=== PATIENT | female | born 1970 | race Two or more races ===

== ENCOUNTER 2023-10-07 14:30 | Emergency (ER) | payer OTHER ==
[~2023-10-07] VITALS: Ht 154.9 cm; Wt 52.2 kg
[2023-10-07] MEDS ORDERED: SINGULAIR10 MG PO (15:04)
[2023-10-07] MEDS ORDERED: NEURONTIN300 MG PO (15:04)
[2023-10-07] MEDS ORDERED: CLONAZEPAM0.5 M1 PO (15:04)
[2023-10-07] MEDS ORDERED: LAMICTAL200 MG PO (15:04)
[2023-10-07] MEDS ORDERED: FAMOTIDINE/PF 20 MG/2 ML VIAL IV ONE (16:15)
[2023-10-07] MEDS ORDERED: ONDANSETRON HCL 2 MG/ML VIAL IV ONE (16:15)
[2023-10-07] MEDS ORDERED: KETOROLAC TROMETHAMINE 30 MG VIAL IV ONE (16:15)
[2023-10-07] MEDS ORDERED: 0.9 % SODIUM CHLORIDE 500 ML IV ONE (16:15)
[2023-10-07 17:00] LABS: URINE APPEARANCE Clear; URINE BILIRRUBIN Negative (NEGATIVE); URINE BLOOD Negative; URINE COLOR Yellow; URINE GLUCOSE Negative (NEGATIVE); URINE LEUKOCYTE Negative; URINE NITRATE Negative; URINE PROTEIN Negative (NEGATIVE); URINE UROBILINOGEN 0.2 E.U./dl
[2023-10-07 17:03] LABS: HEMATOCRIT 39.4 % (36.0-45.00); MEAN CELL VOLUME 82.8 fL (80.00-100.00); MEAN CORPUSCULAR HEMOGLOBIN 27.4 pg (27.00-32.0); MEAN CORPUSCULAR HGB CONC 33.1 g/dl (32.0-36.0); PLATELET COUNT 282 K/uL (150-450); RED BLOOD COUNT 4.76 M/uL (4.00-6.00); RED CELL DISTRIBUTION WIDTH 13.1 % (11.5-14.5)
[2023-10-07 17:04] LABS: URINE EPITHELIAL CELLS 2.3 uL (0.0-38.8); URINE RBC 15.2 uL (0.0-20.8); URINE WBC 3.8 uL (0.0-23.2)
[2023-10-07 17:48] LABS: ALBUMIN 3.9 gm/dL (3.4-5.0); BILIRUBIN TOTAL 0.29 mg/dL (0.3-1.2); CREATININE SERUM 0.83 mg/dL (0.55-1.02); GFR 72.47; GLOBULINA 3.7 G/DL (2.4-3.5); POTASSIUM 3.96 mEq/L (3.5-5.1); TOTAL PROTEIN 7.6 gm/dL (6.4-8.2)
[2023-10-07] MEDS ORDERED: MIRALAX510 GM PO (19:20)
[2023-10-07] MEDS ORDERED: DICLOFENAC SODI50 MG PO (19:21)
== END 2023-10-07 19:34 ==
LOC: ER 14:31
PROVIDERS: Nurse Practitioner Family
DX: K59.00 Constipation, unspecified (principal); K57.30 Diverticulosis of large intestine without perforation or abscess without bleeding; E03.9 Hypothyroidism, unspecified; Z87.09 Personal history of other diseases of the respiratory system; Z91.013 Allergy to seafood; Z88.8 Allergy status to other drugs, medicaments and biological substances; Z91.018 Allergy to other foods; Z20.822 Contact with and (suspected) exposure to COVID-19

== ENCOUNTER 2024-04-27 10:45 | Inpatient (IN) | payer OTHER ==
[~2024-04-27] VITALS: Ht 154.9 cm; Wt 53.5 kg
[~2024-04-27 10:45] MED LIST: CLONAZEPAM0.5 M1 PO; DICLOFENAC SODI50 MG PO; LAMICTAL200 MG PO; MIRALAX510 GM PO; NEURONTIN300 MG PO; SINGULAIR10 MG PO
[2024-04-27] MEDS ORDERED: SYMBICORT 16010.2 GM IH (13:06)
[2024-04-27] MEDS ORDERED: ATROVENT HFA12.9 GM IH (13:06)
[2024-04-27 13:07] VITALS: BP 119/77
[2024-04-27] MEDS ORDERED: GABAPENTIN100 M2 PO (13:07)
[2024-04-27] MEDS ORDERED: PEPCID AC20 MG PO (13:07)
[2024-05-08] MEDS ORDERED: LIDOCAINE HCL 1%/EPINEPHRINE 20ML VIAL IJ ONE (14:57)
[2024-05-08] MEDS ORDERED: METRONIDAZOLE/SODIUM CHLORIDE 500 MG/100 ML PIGGYBACK IV ONE (14:57)
[2024-05-08] MEDS ORDERED: CEFTRIAXONE SODIUM 2,000 MG VIAL ONE (14:57)
[2024-05-08] MEDS ORDERED: BUPIVACAINE HCL/Mpf 0.5% 10ML VIAL ONE (14:57)
[2024-05-08] MEDS ORDERED: LACTOBACILLUS ACIDOPHILUS 1 CAP CAP PO SCH (17:04)
[2024-05-08] MEDS ORDERED: TAMSULOSIN HCL 0.4 MG CAP PO SCH (17:04)
[2024-05-08] MEDS ORDERED: RINGERS SOLUTION,LACTATED 1,000 ML IV SCH (17:15)
[2024-05-08] MEDS ORDERED: MORPHINE SULFATE 4 MG/ML CARTRIDGE IV PRN (17:15)
[2024-05-08] MEDS ORDERED: OxyCODONE HCL 5 MG TABLET (ROXICODONE) PO PRN (17:15)
[2024-05-08] MEDS ORDERED: ONDANSETRON HCL 2 MG/ML VIAL IV PRN (17:15)
[2024-05-08] MEDS ORDERED: MORPHINE SULFATE 4 MG/ML VIAL IV ONE ×3 (17:55→18:55)
[2024-05-08] MEDS ORDERED: ACETAMINOPHEN 500 MG GEL..CAP PO SCH (18:00)
[2024-05-08] MEDS ORDERED: ONDANSETRON HCL 2 MG/ML VIAL ONE (18:14)
[2024-05-08] MEDS ORDERED: ONDANSETRON HCL 2 MG/ML VIAL IV ONE (18:25)
[2024-05-08] MEDS ORDERED: FAMOTIDINE/PF 20 MG/2 ML VIAL ONE (19:08)
[2024-05-08] MEDS ORDERED: CEFAZOLIN SODIUM 1,000 MG VIAL ONE (19:08)
[2024-05-08] MEDS ORDERED: DEXAMETHASONE SODIUM PHOSP/PF 10 MG/ML VIAL ONE (19:47)
[2024-05-08] MEDS ORDERED: PROMETHAZINE HCL 50 MG/ML AMPUL IM ONE (19:48)
[2024-05-08] MEDS ORDERED: METOCLOPRAMIDE HCL 5 MG/ML VIAL ONE (19:48)
[2024-05-08 20:50] VITALS: BP 112/75; O2SAT 96
[2024-05-08] MEDS ORDERED: FAMOTIDINE/PF 20 MG/2 ML VIAL IV PUSH SCH (21:00)
[2024-05-08] MEDS ORDERED: CEFAZOLIN SODIUM 1,000 MG VIAL IV SCH (21:00)
[2024-05-09] MEDS ORDERED: GABAPENTIN 300 MG CAPSULE PO SCH (01:00)
[2024-05-09 01:11] VITALS: BP 131/79; O2SAT 99
[2024-05-09 07:34] LABS: HEMATOCRIT 36.5 % (36.0-45.00); HEMOGLOBIN 12.4 g/dL (12.0-15.00); MEAN CELL VOLUME 82.7 fL (80.00-100.00); MEAN CORPUSCULAR HGB CONC 33.9 g/dl (32.0-36.0); PLATELET COUNT 275 K/uL (150-450); RED BLOOD COUNT 4.41 M/uL (4.00-6.00); RED CELL DISTRIBUTION WIDTH 12.5 % (11.5-14.5)
[2024-05-09 08:00] VITALS: BP 109/69; O2SAT 98
[2024-05-09 08:06] LABS: ALBUMIN 3.4 gm/dL (3.4-5.0); CALCIUM 8.4 mg/dL (8.5-10.1); CREATININE SERUM 0.58 mg/dL (0.55-1.02); GFR 109.6; MAGNESIUM 1.5 mg/dL (1.8-2.4); PHOSPHOROUS 3.6 mg/dL (2.5-4.9); POTASSIUM 3.58 mEq/L (3.5-5.1)
[2024-05-09] MEDS ORDERED: HYOSCYAMINE SULFATE 0.125 MG TAB.SUBL SL SCH (09:00)
[2024-05-09] MEDS ORDERED: MONTELUKAST SODIUM 10 MG TABLET PO SCH (09:00)
[2024-05-09] MEDS ORDERED: LEVALBUTEROL HCL 0.63 MG/3 ML SOLUTION IH SCH (09:00)
[2024-05-09] MEDS ORDERED: MAGNESIUM SULFATE IN WATER 4 GM/100 ML PIGGYBACK IV NR (09:15)
[2024-05-09 16:31] VITALS: BP 101/69; O2SAT 100
[2024-05-09] MEDS ORDERED: ENOXAPARIN SODIUM 40 MG/0.4 ML SYRINGE SUBCUTANEO SCH (17:00)
[2024-05-09] MEDS ORDERED: LAMICTAL 200 MG PO SCH (17:00)
[2024-05-09] MEDS ORDERED: CLONAZEPAM 0.5 MG TABLET PO SCH (21:00)
[2024-05-10 00:42] VITALS: BP 109/57; O2SAT 97
[2024-05-10 08:00] VITALS: BP 104/66; O2SAT 97
[2024-05-10] MEDS ORDERED: ENOXAPARIN SODIUM 40 MG/0.4 ML SYRINGE SUBCUTANEO SCH (09:00)
[2024-05-10] MEDS ORDERED: PANTOPRAZOLE SODIUM 40 MG/VIAL VIAL IV SCH (11:47)
[2024-05-10] MEDS ORDERED: SUCRALFATE 1 G TABLET PO SCH (13:00)
[2024-05-10 16:32] VITALS: BP 106/66; O2SAT 97
[2024-05-10] MEDS ORDERED: MEPERIDINE HCL/PF 25 MG/ML VIAL IV SCH (17:00)
[2024-05-11 00:45] VITALS: BP 124/60; O2SAT 97
[2024-05-11 06:27] LABS: HEMATOCRIT 34.6 % (36.0-45.00); HEMOGLOBIN 11.5 g/dL (12.0-15.00); MEAN CELL VOLUME 83.3 fL (80.00-100.00); MEAN CORPUSCULAR HEMOGLOBIN 27.7 pg (27.00-32.0); MEAN CORPUSCULAR HGB CONC 33.2 g/dl (32.0-36.0); PLATELET COUNT 241 K/uL (150-450); RED BLOOD COUNT 4.16 M/uL (4.00-6.00); RED CELL DISTRIBUTION WIDTH 12.7 % (11.5-14.5)
[2024-05-11 06:54] LABS: BILIRUBIN TOTAL 0.39 mg/dL (0.3-1.2); CALCIUM 8.4 mg/dL (8.5-10.1); CREATININE SERUM 0.6 mg/dL (0.55-1.02); GFR 105.39; GLOBULINA 2.6 G/DL (2.4-3.5); POTASSIUM 3.53 mEq/L (3.5-5.1); TOTAL PROTEIN 5.6 gm/dL (6.4-8.2)
[2024-05-11 08:00] VITALS: BP 101/60; O2SAT 98
[2024-05-11 16:00] VITALS: BP 100/68; BP 100/698; O2SAT 95
[2024-05-11] MEDS ORDERED: INTESTINEX680 M1 PO (17:37)
[2024-05-11] MEDS ORDERED: HYOSCYAMINE0.125 M1 SL (17:38)
[2024-05-11] MEDS ORDERED: TRAMADOL HCL50 MG PO (17:38)
== END 2024-05-12 08:39 | disposition home or self-care (01) | DRG 330 ==
LOC: SURH 05-08 06:30 → O/R 05-08 06:30 → SURH 05-08 10:45
PROVIDERS: Internal Medicine; ADMIT Surgery; ATTEND Surgery
PROC: 0DBP4ZZ Excision of Rectum, Percutaneous Endoscopic Approach (ICD-10-PCS; 2024-05-08)
PROC: 0DJD8ZZ Inspection of Lower Intestinal Tract, Via Natural or Artificial Opening Endoscopic (ICD-10-PCS; 2024-05-08)
PROC: 0DTN4ZZ Resection of Sigmoid Colon, Percutaneous Endoscopic Approach (ICD-10-PCS; principal; 2024-05-08 14:00)
DX: K57.32 Diverticulitis of large intestine without perforation or abscess without bleeding (principal); K56.690 Other partial intestinal obstruction; N73.6 Female pelvic peritoneal adhesions (postinfective); N99.4 Postprocedural pelvic peritoneal adhesions

== ENCOUNTER 2024-07-14 09:56 | Emergency (ER) | payer OTHER ==
[~2024-07-14] VITALS: Ht 154.9 cm; Wt 51.3 kg
[~2024-07-14 09:56] MED LIST changes: +ATROVENT HFA12.9 GM IH; +GABAPENTIN100 M2 PO; +HYOSCYAMINE0.125 M1 SL; +INTESTINEX680 M1 PO; +PEPCID AC20 MG PO; +SYMBICORT 16010.2 GM IH; +TRAMADOL HCL50 MG PO
[2024-07-14] MEDS ORDERED: SUCRALFATE1 GM PO (10:11)
[2024-07-14] MEDS ORDERED: ONDANSETRON HCL 2 MG/ML VIAL IV ONE (10:30)
[2024-07-14] MEDS ORDERED: PANTOPRAZOLE SODIUM 40 MG/VIAL VIAL IV ONE (10:30)
[2024-07-14] MEDS ORDERED: KETOROLAC TROMETHAMINE 30 MG VIAL IV ONE (10:30)
[2024-07-14] MEDS ORDERED: ONDANSETRON HCL 2 MG/ML VIAL ONE (10:33)
[2024-07-14] MEDS ORDERED: KETOROLAC TROMETHAMINE 30 MG VIAL ONE (10:33)
[2024-07-14] MEDS ORDERED: BARIUM SULFATE 450 ML ORAL.SUSP PO ONE (10:38)
[2024-07-14 10:52] LABS: HEMATOCRIT 40.3 % (36.0-45.00); HEMOGLOBIN 13.2 g/dL (12.0-15.00); MEAN CELL VOLUME 83.6 fL (80.00-100.00); MEAN CORPUSCULAR HEMOGLOBIN 27.5 pg (27.00-32.0); MEAN CORPUSCULAR HGB CONC 32.9 g/dl (32.0-36.0); PLATELET COUNT 299 K/uL (150-450); RED BLOOD COUNT 4.82 M/uL (4.00-6.00)
[2024-07-14 11:02] LABS: URINE APPEARANCE Clear; URINE BILIRRUBIN Negative (NEGATIVE); URINE BLOOD Negative; URINE COLOR Yellow; URINE GLUCOSE Negative (NEGATIVE); URINE KETONE Negative (NEGATIVE); URINE LEUKOCYTE Negative; URINE NITRATE Negative; URINE PROTEIN Negative (NEGATIVE); URINE UROBILINOGEN 0.2 E.U./dl
[2024-07-14 11:03] LABS: URINE BACTERIA 193.3 uL (0.0-1933); URINE EPITHELIAL CELLS 3.6 uL (0.0-38.8); URINE RBC 12.9 uL (0.0-20.8); URINE WBC 3.7 uL (0.0-23.2)
[2024-07-14 12:22] LABS: INR 0.97; PARTIAL THROMBOPLASTIN TIME 26.5 SECONDS (22.0-34.0); PROTHROMBIN TIME 10.6 SECONDS (9.0-11.5)
[2024-07-14 12:32] LABS: ALBUMIN 3.8 gm/dL (3.4-5.0); ALKALINE PHOSPHATASE 84 U/L (50-136); ALT/SGPT 27 U/L (12-78); AMYLASE 131 U/L (25-115); ANION GAP 6 (10.0-20.0); AST/SGOT 24 U/L (15-37); BILIRUBIN TOTAL 0.31 mg/dL (0.3-1.2); BILIRUBIN,CONJUGATED < 0.10 mg/dL (0.0-0.2); BILIRUBIN,UNCONJUGATED 0.21 mg/dL (0.0-0.6); BLOOD UREA NITROGEN 12 mg/dL (7-18); BUN CREA RATIO 16 (7.0-25.0); CALCIUM 9.7 mg/dL (8.5-10.1); CARBON DIOXIDE 33 mEq/L (21-32); CHLORIDE 109 mmol/L (98-107); CREATININE SERUM 0.73 mg/dL (0.55-1.02); GFR 83.72; GLOBULINA 3.7 G/DL (2.4-3.5); GLUCOSE FASTING 95 mg/dL (65-100); LIPASE 56 U/L (13-75); OSMOLALITY SERUM 286 MOSM/KG (275-295); SODIUM 144 mmol/L (136-145); TOTAL PROTEIN 7.5 gm/dL (6.4-8.2)
[2024-07-14] MEDS ORDERED: METRONIDAZOLE500 MG PO (14:59)
[2024-07-14] MEDS ORDERED: PROBIOTIC1 EAC2 PO (14:59)
[2024-07-14] MEDS ORDERED: PEPCID AC20 MG PO (14:59)
[2024-07-14] MEDS ORDERED: KETO10TA2 PO (14:59)
== END 2024-07-14 15:06 | disposition home or self-care (01) ==
LOC: ER 09:58
PROVIDERS: General Practice
DX: R11.0 Nausea (principal); R10.32 Left lower quadrant pain; K59.00 Constipation, unspecified; K57.90 Diverticulosis of intestine, part unspecified, without perforation or abscess without bleeding; R10.9 Unspecified abdominal pain; E03.8 Other specified hypothyroidism; Z88.1 Allergy status to other antibiotic agents; Z88.9 Allergy status to unspecified drugs, medicaments and biological substances; Z91.018 Allergy to other foods; Z91.040 Latex allergy status; Z91.041 Radiographic dye allergy status
CPT/HCPCS: 36415; 74177; Q9965

== ENCOUNTER 2024-07-16 10:32 | Inpatient (IN) | payer OTHER ==
[~2024-07-16] VITALS: Ht 154.9 cm; Wt 52.2 kg
[~2024-07-16 10:32] MED LIST changes: +KETO10TA2 PO; +METRONIDAZOLE500 MG PO; +PROBIOTIC1 EAC2 PO; +SUCRALFATE1 GM PO
--- NOTE | 2024-07-16 10:43 | NUR ---
PTE ALERTA Y ORIENTADA X3 LA MISMA VERBALIZA TENER DOLOR ABDOMINAL DESDE 07/16/24 CON VOMITOS VINO A KENNY EL JUSTINA. LA MISMA FUE OPERADA DE DIVERTICULOS Y INTESTINO EL 05/08/[address] MONICA LUNA EL MISMO LE NOTIFICO A LA PTE QUE SI EL DOLOR SEGUIA VINERA A KENNY DE ER Y QUE SE COMUNICARAN CON EL. SE LE DONYA S/V Y SE UBICA EN JUAN DANIEL.
[2024-07-16] MEDS ORDERED: 0.9 % SODIUM CHLORIDE 1,000 ML IV STA (10:56)
[2024-07-16] MEDS ORDERED: PIPERACILLIN/TAZOBACTAM SODIUM 3.375 GM VIAL IV ONE ×2 (10:57→11:00)
[2024-07-16] MEDS ORDERED: LACTOBACILLUS ACIDOPHILUS 1 CAP CAP PO SCH (11:12)
[2024-07-16] MEDS ORDERED: FAMOTIDINE/PF 20 MG/2 ML VIAL IV SCH (11:12)
[2024-07-16] MEDS ORDERED: ENOXAPARIN SODIUM 40 MG/0.4 ML SYRINGE SUBCUTANEO SCH (11:13)
[2024-07-16] MEDS ORDERED: ONDANSETRON HCL 2 MG/ML VIAL IV PRN (11:15)
[2024-07-16] MEDS ORDERED: RINGERS SOLUTION,LACTATED 1,000 ML IV SCH (11:15)
[2024-07-16 11:34] LABS: HEMATOCRIT 39.2 % (36.0-45.00); HEMOGLOBIN 12.9 g/dL (12.0-15.00); MEAN CELL VOLUME 84.3 fL (80.00-100.00); MEAN CORPUSCULAR HEMOGLOBIN 27.6 pg (27.00-32.0); MEAN CORPUSCULAR HGB CONC 32.8 g/dl (32.0-36.0); PLATELET COUNT 297 K/uL (150-450); RED BLOOD COUNT 4.65 M/uL (4.00-6.00); RED CELL DISTRIBUTION WIDTH 12.5 % (11.5-14.5)
[2024-07-16] MEDS ORDERED: ENOXAPARIN SODIUM 40 MG/0.4 ML SYRINGE SUBCUTANEO ONE (11:50)
[2024-07-16] MEDS ORDERED: ONDANSETRON HCL 2 MG/ML VIAL ONE (11:50)
[2024-07-16] MEDS ORDERED: FAMOTIDINE/PF 20 MG/2 ML VIAL ONE (11:50)
[2024-07-16 11:57] LABS: INR 0.99; PARTIAL THROMBOPLASTIN TIME 26.2 SECONDS (22.0-34.0); PROTHROMBIN TIME 10.8 SECONDS (9.0-11.5)
[2024-07-16 12:02] LABS: CALCIUM 9.5 mg/dL (8.5-10.1); CREATININE SERUM 0.67 mg/dL (0.55-1.02); GFR 92.43; POTASSIUM 4.07 mEq/L (3.5-5.1)
[2024-07-16 12:08] LABS: PH,URINE 7.5 (5.0-8.0); URINE APPEARANCE Clear; URINE BILIRRUBIN Negative (NEGATIVE); URINE BLOOD Negative; URINE COLOR Yellow; URINE GLUCOSE Negative (NEGATIVE); URINE KETONE Negative (NEGATIVE); URINE LEUKOCYTE Negative; URINE NITRATE Negative; URINE PROTEIN Negative (NEGATIVE); URINE UROBILINOGEN 0.2 E.U./dl
[2024-07-16 12:14] LABS: URINE EPITHELIAL CELLS 3.2 uL (0.0-38.8); URINE RBC 4.5 uL (0.0-20.8)
[2024-07-16] MEDS ORDERED: LAMICTAL 200 MG PO SCH ×2 (12:14→17:00)
[2024-07-16] MEDS ORDERED: ENALAPRILAT DIHYDRATE 2.5 MG/2 ML VIAL IV PRN (12:15)
[2024-07-16] MEDS ORDERED: ACETAMINOPHEN 500 MG GEL..CAP PO PRN (12:15)
[2024-07-16] MEDS ORDERED: CLONAZEPAM 0.5 MG TABLET PO PRN (12:15)
[2024-07-16 12:24] LABS: COVID-19 AG NEGATIVE (NEGATIVE)
[2024-07-16 12:28] VITALS: BP 115/79
[2024-07-16] MEDS ORDERED: HYOSCYAMINE SULFATE 0.125 MG TAB.SUBL SL SCH (13:00)
[2024-07-16 13:04] LABS: URINE WBC 0.7 uL (0.0-23.2)
[2024-07-16] MEDS ORDERED: ENALAPRILAT DIHYDRATE 1.25 MG/ML VIAL IV PRN (13:15)
[2024-07-16 13:42] VITALS: BP 119/78; O2SAT 98
[2024-07-16] MEDS ORDERED: HYOSCYAMINE SULFATE 0.125 MG TAB.SUBL ONE (13:50)
[2024-07-16] MEDS ORDERED: LACTOBACILLUS ACIDOPHILUS 1 CAP CAP PO ONE (13:51)
[2024-07-16] MEDS ORDERED: POLYETHYLENE GLYCOL 3350 238 GM POWDER PO NR (15:00)
[2024-07-16] MEDS ORDERED: BISACODYL 5 MG TABLET.EC PO NR (15:00)
[2024-07-16 15:26] VITALS: BP 120/80; O2SAT 96
[2024-07-16 17:25] VITALS: BP 118/84; O2SAT 97
[2024-07-17] VITALS: BP 95/62; O2SAT 95
[2024-07-17 02:00] VITALS: BP 96/56; O2SAT 99
[2024-07-17 08:00] VITALS: BP 111/76; O2SAT 100
[2024-07-17] MEDS ORDERED: MIDAZOLAM HCL 2 MG/2 ML VIAL IV STA (11:54)
[2024-07-17] MEDS ORDERED: DIPHENHYDRAMINE HCL 50 MG/ML VIAL 1ML IV STA (11:55)
[2024-07-17] MEDS ORDERED: fentaNYL CITRATE 50 MCG/ML AMPUL IV STA (11:55)
[2024-07-17 17:38] VITALS: BP 108/72; O2SAT 98
[2024-07-17] MEDS ORDERED: PEPCID AC20 MG PO (18:18)
[2024-07-17] MEDS ORDERED: PANTOPRAZOLE SO20 MG PO (18:19)
== END 2024-07-17 20:59 | disposition home or self-care (01) | DRG 392 ==
LOC: ER 10:33 → SURH 12:26 → SEC-K 12:26 → SURH 13:17
PROVIDERS: Emergency Medicine; ADMIT Surgery; ATTEND Surgery
PROC: 0DB98ZX Excision of Duodenum, Via Natural or Artificial Opening Endoscopic, Diagnostic (ICD-10-PCS; principal; 2024-07-17)
PROC: 0DB78ZX Excision of Stomach, Pylorus, Via Natural or Artificial Opening Endoscopic, Diagnostic (ICD-10-PCS; 2024-07-17)
PROC: 0DB68ZX Excision of Stomach, Via Natural or Artificial Opening Endoscopic, Diagnostic (ICD-10-PCS; 2024-07-17)
PROC: 0DBB8ZX Excision of Ileum, Via Natural or Artificial Opening Endoscopic, Diagnostic (ICD-10-PCS; 2024-07-17)
PROC: 0DBG8ZX Excision of Left Large Intestine, Via Natural or Artificial Opening Endoscopic, Diagnostic (ICD-10-PCS; 2024-07-17)
DX: K52.9 Noninfective gastroenteritis and colitis, unspecified (principal); K29.60 Other gastritis without bleeding; K59.09 Other constipation; R11.0 Nausea; R10.9 Unspecified abdominal pain; K21.9 Gastro-esophageal reflux disease without esophagitis; K64.8 Other hemorrhoids